=== PATIENT | male | born 1950 | race Two or more races ===

== ENCOUNTER 2020-11-20 08:35 | Day surgery (SDC) | payer OTHER | END 2020-11-20 13:30 | disposition home or self-care (01) | LOC: AMB-ENDOS 08:35 | PROVIDERS: ATTEND Surgery | DX: D12.5 Benign neoplasm of sigmoid colon (principal); Z20.822 Contact with and (suspected) exposure to COVID-19 ==

== ENCOUNTER 2022-03-27 13:15 | Inpatient (IN) | payer OTHER ==
[2022-03-27] MEDS ORDERED: SIMVASTATIN5 MG (16:02)
[2022-03-31] MEDS ORDERED: AMLODIPINE BESYL5 MG (15:49)
[2022-03-31] MEDS ORDERED: ST. JOSEPH ASPI81 M2 (15:49)
[2022-03-31] MEDS ORDERED: METFORMIN HCL500 M4 (15:49)
[2022-03-31] MEDS ORDERED: HYDROCHLOROTH12.5 MG (15:49)
[2022-03-31] MEDS ORDERED: IRBESARTAN-HCT1 EAC1 (15:49)
[2022-04-03] MEDS ORDERED: INTESTINEX680 M1 PO (10:54)
[2022-04-03] MEDS ORDERED: HYOSCYAMINE0.125 M1 SL (10:54)
[2022-04-03] MEDS ORDERED: OXYC1TAB9 PO (10:54)
== END 2022-04-03 15:44 | disposition home or self-care (01) | DRG 331 ==
LOC: ADM 13:15 → EDSTATUS 13:15 → SURH 03-31 07:00 → O/R 03-31 08:30 → SURG 03-31 08:30 → SURH 03-31 13:15 → SURG 03-31 19:27
PROVIDERS: ADMIT Surgery; ATTEND Surgery
PROC: 0DBP4ZZ Excision of Rectum, Percutaneous Endoscopic Approach (ICD-10-PCS; 2022-03-31)
PROC: 07BC4ZZ Excision of Pelvis Lymphatic, Percutaneous Endoscopic Approach (ICD-10-PCS; 2022-03-31)
PROC: 0DJD8ZZ Inspection of Lower Intestinal Tract, Via Natural or Artificial Opening Endoscopic (ICD-10-PCS; 2022-03-31)
PROC: 0DTN4ZZ Resection of Sigmoid Colon, Percutaneous Endoscopic Approach (ICD-10-PCS; principal; 2022-03-31 07:00)
DX: D12.5 Benign neoplasm of sigmoid colon (principal); R19.4 Change in bowel habit; K57.30 Diverticulosis of large intestine without perforation or abscess without bleeding; D12.7 Benign neoplasm of rectosigmoid junction; I10 Essential (primary) hypertension; Z20.822 Contact with and (suspected) exposure to COVID-19; Z86.010 Personal history of colon polyps; E11.9 Type 2 diabetes mellitus without complications; Z79.4 Long term (current) use of insulin